=== PATIENT | female | born 1970 | race Caucasian/White ===

== ENCOUNTER 2016-07-12 21:07 | Emergency (ER) | payer BC, OTHER ==
[~2016-07-12] VITALS: Ht 165.1 cm; Wt 45.4 kg
[2016-07-12] MEDS ORDERED: MORPHINE SULFATE INJ 2 MG/ML DISP.SYRIN IV ONE (22:30)
[2016-07-12] MEDS ORDERED: ONDANSETRON HCL/PF 4 MG/2 ML VIAL IV ONE (22:30)
[2016-07-12] MEDS ORDERED: ONDANSETRON HCL/PF 4 MG/2 ML VIAL ONE (22:31)
[2016-07-12] MEDS ORDERED: MORPHINE SULFATE INJ 4 MG/ML DISP.SYRIN ONE (22:31)
[2016-07-12 22:44] LABS: BASOPHILS % (AUTO) 0.4 % (0.0-2.0); DIFF TOTAL % 100 %; EOSINOPHILS # (AUTO) 0.5 /CMM (0.0-0.7); EOSINOPHILS % (AUTO) 5.3 % (0.0-6.0); HEMATOCRIT 41 % (33-45); HEMOGLOBIN 13.4 g/dL (11.5-14.8); LYMPHOCYTES # (AUTO) 2.9 /CMM (0.8-4.8); LYMPHOCYTES % (AUTO) 30.1 % (20.0-44.0); MEAN CORPUSCULAR HEMOGLOBIN 29 PG (26.0-33.0); MEAN CORPUSCULAR HGB CONC 33 g/dl (31.0-36.0); MEAN CORPUSCULAR VOLUME 89 fL (82-100); MONOCYTES # (AUTO) 0.6 /CMM (0.1-1.30); MONOCYTES % (AUTO) 6.7 % (2.0-12.0); NEUTROPHILS # (AUTO) 5.5 /CMM (1.8-8.9); NEUTROPHILS % (AUTO) 57.5 % (43.0-81.0); PLATELET COUNT (AUTO) 410 /CMM (150-450); RED BLOOD CELL COUNT(AUTO) 4.59 MIL/uL (4.0-5.2); WHITE BLOOD COUNT (AUTO) 9.5 K/uL (4.3-11.0)
[2016-07-12 22:51] LABS: CALCIUM, SERUM 8.9 mg/dL (8.5-10.1); CREATININE 0.7 mg/dL (0.6-1.3)
[2016-07-12] MEDS ORDERED: IV NS 0.9% 250 ML IV ONE (22:52)
[2016-07-12] MEDS ORDERED: CT SWABBABLE VALVE TRANS SET 1 EA INFUS.SET MC ONE (22:53)
[2016-07-12] MEDS ORDERED: IOHEXOL-300 100 ML VIAL IV ONE (22:53)
[2016-07-13 00:09] VITALS: BP 130/80
== END 2016-07-13 00:09 | disposition home or self-care (01) ==
LOC: ER 21:13
DX: M27.69 Other endosseous dental implant failure (principal); G89.29 Other chronic pain; E03.9 Hypothyroidism, unspecified
CPT/HCPCS: 36415; 70487-TC; 80048-TC; 85025-TC; A4606; J2270; J2405; J7050; Q9967; Z7610